=== PATIENT | female | born 1950 | race Caucasian/White ===

== ENCOUNTER → 2018-11-06 | Outpatient (CLI) | payer MEDICARE, OTHER ==
[~2018-11-06] MED LIST: BLOOD PRESSURE MED; Crutch1 EACH MISC; NAPR550 PO; OXYACE5T PO; Percocet 5-3251 EACH PO; RISE35 PO; RXNAPNA550 PO
== END | disposition home or self-care (01) ==
LOC: LAB SRC 11:23 → LAB SHORT 11:23 → LAB FUT 06-12 07:15
DX: E11.9 Type 2 diabetes mellitus without complications (principal); E78.5 Hyperlipidemia, unspecified; N95.1 Menopausal and female climacteric states; I10 Essential (primary) hypertension
CPT/HCPCS: 82043

== ENCOUNTER → 2024-04-17 | Outpatient (CLI) | payer MEDICARE, OTHER | LOC: LAB SHORT 15:59 → LAB 15:59 | DX: R39.15 Urgency of urination (principal) | CPT/HCPCS: 87086 ==

== ENCOUNTER 2024-10-24 05:35 | Day surgery (SDC) | payer MEDICARE, OTHER ==
[~2024-10-24] VITALS: Ht 155 cm; Wt 63.5 kg
[2024-10-24] VITALS (12 sets, daily range): BP systolic 101–189; BP diastolic 55–74
[~2024-10-24 05:35] MED LIST changes: +DILT180 PO; +JARDIANCE25 MG PO; +LISI20 PO; +SITA25T2 PO
[2024-10-24] MEDS ORDERED: CeFAZolin Sodium 2,000 MG in NS 100 ML IV SCH (06:50)
[2024-10-24] MEDS ORDERED: Lactated Ringer's 1,000 ML IV SCH ×2 (06:50→09:40)
[2024-10-24] MEDS ORDERED: Bupivacaine 0.5% W/EPI 1:200000 SDV 30 ML Vial ONE (07:03)
--- NOTE | 2024-10-24 07:35 | NUR ---
Ambulatory in Day Surgery History, Chart, Medications and Allergies reviewed before start of procedure.Patient confirms NPO status and agrees with scheduled surgery. Patient reports completing Chlorhexadine shower X2 prior to admission to hospital.ABDOMEN prepped with 2% Chlorhexidine cloth wipe.
[2024-10-24] MEDS ORDERED: FentaNYL Citrate 50 MCG/ML 2 ML Injection ONE (07:46)
[2024-10-24] MEDS ORDERED: Rocuronium Bromide 10 MG/ML 5ML Injection IV ONE (07:47)
[2024-10-24] MEDS ORDERED: propofoL 20 ML IV ONE (07:47)
[2024-10-24] MEDS ORDERED: Esmolol HCL 10 MG/ML 10ML VIAL ONE (07:55)
[2024-10-24] MEDS ORDERED: Ondansetron HCl 2 MG / ML 2ML Vial ONE (08:05)
[2024-10-24] MEDS ORDERED: Dexamethasone Sod Phos 10 MG/ML 1ML VIAL ONE (08:05)
[2024-10-24] MEDS ORDERED: Ketorolac Tromethamine 30mg Vial ONE (08:21)
[2024-10-24] MEDS ORDERED: Sugammadex Sodium 200 MG/2ML SDV (100 MG/ML) ONE (08:21)
--- NOTE | 2024-10-24 08:22 | NUR ---
10/24/24 08 Kranthi Orozco I PLACED MAGANA CATH 14FR IN [facility]. UNDER VERBAL ORDER OF DR. KNAPP. MAGANA WILL STAY IN POSTOP PER DR. KNAPP. KRANTHI VÁZQUEZ RN 10-24-24 @83
[2024-10-24] MEDS ORDERED: Ondansetron HCl 2 MG / ML 2ML Vial IV PRN ×2 (08:25→09:45)
[2024-10-24] MEDS ORDERED: FentaNYL Citrate 50 MCG/ML 2 ML Injection IV PRN ×3 (08:30→09:45)
[2024-10-24] MEDS ORDERED: Labetalol HCL 5 MG/ML 4ML Injection (Single Dose) IV PRN (08:30)
[2024-10-24] MEDS ORDERED: HYDROmorphone HCl/Pf 1MG SYR IV PRN ×2 (08:30)
[2024-10-24] MEDS ORDERED: Acetaminophen 325 MG TABLET PO PRN (09:40)
[2024-10-24] MEDS ORDERED: Naloxone HCl 0.4MG / ML 1ML Vial IV PRN (09:40)
[2024-10-24] MEDS ORDERED: Ibuprofen 400 MG Tab PO PRN (09:40)
[2024-10-24] MEDS ORDERED: DiphenhydrAMINE HCL 25 MG Cap PO PRN (09:40)
[2024-10-24] MEDS ORDERED: HYDROcodone 5-APAP 325 TAB PO PRN (09:45)
[2024-10-24] MEDS ORDERED: OxyCODONE HCL 5 MG TAB PO PRN (09:45)
--- NOTE | 2024-10-24 10:46 | NUR ---
POST OP PT ARRIVAL TO UNIT AT APPROX 1020 S/P LAVH. PT AWAKE AND ALERT. REPORTS MILD PAIN BUT DECLINES PAIN MEDICATIONS AT THIS TIME. X3 STERI STRIPS TO ABD ARE CDI. MAGANA IN PLACE WITH CLEAR YELLOW URINE. SCANT VAGINAL BLEEDING NOTED ON KWAN PAD. POST OP VSS AND IN PROGRESS. PT SLOWLY CLAUDINE SIPS OF WATER. FAMILY AT BEDSIDE FOR SUPPORT. CALL LIGHT WITHIN REACH.
[2024-10-24] MEDS ORDERED: Ketorolac Tromethamine 30mg Vial IV SCH (12:00)
[2024-10-24 13:13] LABS: BASOPHILS ABSOLUTE AUTO 0.02 K/mm3 (0.00-0.23); BASOPHILS PERCENT AUTO 0 % (0-2); EOSINOPHILS PERCENT AUTO 0 % (0-6); Hematocrit 39.8 % (33.0-51.0); Hemoglobin 13.9 g/dL (11.5-16.0); IMMATURE GRAN ABSOLUTE AUTO 0.03 K/mm3 (0.00-0.10); IMMATURE GRAN PERCENT AUTO 0 % (0-1); LYMPHOCYTES ABSOLUTE AUTO 0.46 K/mm3 (0.84-5.20); LYMPHOCYTES PERCENT AUTO 5 % (21-46); MONOCYTES ABSOLUTE AUTO 0.11 K/mm3 (0.16-1.47); MONOCYTES PERCENT AUTO 1 % (4-13); Mean Corpuscular HGB 32.3 pg (26.0-34.0); Mean Corpuscular HGB Conc 34.9 g/dL (31.5-36.5); Mean Corpuscular Volume 93 fL (80-100); Mean Platelet Volume 8.9 fL (9.1-12.4); NEUTROPHILS ABSOLUTE AUTO 8.63 K/mm3 (1.96-9.15); NEUTROPHILS PERCENT AUTO 93 % (41-73); Platelet Count 156 K/mm3 (150-400); RDW Standard Deviation 44.1 fL (35.1-46.3); White Blood Cell Count 9.25 K/mm3 (4.00-11.30)
--- NOTE | 2024-10-24 14:35 | NUR ---
Pt. is awake and sitting up when she welcomes my visit. Pt. is pleasant. facilitated a lengthy life review. Considered matters of our families, and of kin. Pt. 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 Listen with empathy and a calming presence. Pt.invited this sheet taker to pray for her. Prayed for Pt. Pt. verbalzied gratitude for the spiritual care visit.
--- NOTE | 2024-10-24 17:20 | NUR ---
PT DISCHARGED BY MACHINE CHAIN MAKERRAHEL BATRES. PT LEFT WITH ALL PERSONAL BELONGINGS. IV DC'D.
== END 2024-10-24 17:52 | disposition home or self-care (01) ==
LOC: ORSCMMR 05:35 → ORD 07:30 → ORSCMMR 07:30 → SURS 10:35 → ORSCMMR 17:52
PROVIDERS: Obstetrics & Gynecology
PROC: 0UT6FZZ Resection of Left Fallopian Tube, Via Natural or Artificial Opening With Percutaneous Endoscopic Assistance (ICD-10-PCS; principal; 2024-10-24 07:30)
PROC: 0UT1FZZ Resection of Left Ovary, Via Natural or Artificial Opening With Percutaneous Endoscopic Assistance (ICD-10-PCS; principal; 2024-10-24 07:30)
PROC: 0UT9FZZ Resection of Uterus, Via Natural or Artificial Opening With Percutaneous Endoscopic Assistance (ICD-10-PCS; principal; 2024-10-24 07:30)
DX: N81.4 Uterovaginal prolapse, unspecified (principal); R23.4 Changes in skin texture; N72 Inflammatory disease of cervix uteri; N83.291 Other ovarian cyst, right side; N83.8 Other noninflammatory disorders of ovary, fallopian tube and broad ligament; N73.6 Female pelvic peritoneal adhesions (postinfective); I10 Essential (primary) hypertension; E11.9 Type 2 diabetes mellitus without complications; I73.00 Raynaud's syndrome without gangrene; Z79.899 Other long term (current) drug therapy
CPT/HCPCS: 36415; 82947; 85025; 86850; 86900; 86901; 88307; A9270; J0690; J1100; J1885; J2405; J2704; J3010; J7120

== ENCOUNTER → 2024-11-25 | Outpatient (CLI) | payer MEDICARE, OTHER | END | disposition home or self-care (01) | LOC: LAB 17:50 → LAB SHORT 17:50 | DX: Z09 Encounter for follow-up examination after completed treatment for conditions other than malignant neoplasm (principal); R30.0 Dysuria | CPT/HCPCS: 87086 ==